=== PATIENT | female | born 1940 | race Caucasian/White ===

== ENCOUNTER 2017-05-17 15:50 | Outpatient (CLI) | payer BC, MEDICARE, OTHER ==
[2017-05-17 16:44] LABS: #Basophils 0.1 thou/uL (0.0-0.2); #Lymphocytes 1.8 thou/uL (1.20-3.40); #Monocytes 0.3 thou/uL (0.11-0.59); #Neutrophils 2.3 thou/uL (1.40-6.50); %Basophils 1.3 % (0.0-1.0); %Lymphocytes 39.8 % (21.0-51.0); %Monocytes 7.4 % (0.0-10.0); %Neutrophils 50.4 % (42.0-75.0); Hemoglobin 14.3 g/dL (12.0-16.0); Mean Corpuscular HGB CONC 32.5 g/dL (32.0-36.0); Mean Corpuscular Hemoglobin 28.3 pg (27.0-31.0); Mean Platelet Volume 7.1 fL (7.4-10.4); Platelet Count 220 thou/uL (130-400); RBC Distribution Width 12.1 % (11.5-14.5); Red Blood Cell (RBC) Count 5.06 mill/uL (4.20-5.40); White Blood Cell (WBC) Count 4.6 thou/uL (4.8-10.8)
[2017-05-17 17:02] LABS: ALT (SGPT) 15 U/L (8-55); AST (SGOT) 17 U/L (5-34); Albumin 4.4 g/dL (3.4-4.8); Alkaline Phosphatase 66 U/L (40-150); Anion Gap 14 mmol/L (10-20); BUN (Urea Nitrogen) 12 mg/dL (9.8-20.1); Bilirubin, Total 0.8 mg/dL (0.2-1.2); Calc. Creatinine Clearance 0 mL/min (70-130); Calcium 9.5 mg/dL (7.8-10.44); Carbon Dioxide 25 mmol/L (23-31); Chloride 105 mmol/L (98-107); Estimated GFR-MDRD 58; Globulin 2.7 g/dL (2.4-3.5); Glucose 79 mg/dL (83-110); Lipase 38 U/L (8-78); Potassium 4.3 mmol/L (3.5-5.1); Protein, Total 7.1 g/dL (6.0-8.3); Sodium 140 mmol/L (136-145)
== END 2017-05-17 15:51 | disposition home or self-care (01) ==
LOC: HPCALD 15:50
PROVIDERS: ATTEND Family Medicine
DX: R10.11 Right upper quadrant pain (principal)
CPT/HCPCS: 36415; 80053; 83690; 85025

== ENCOUNTER 2017-05-22 09:12 | Outpatient (CLI) | payer MEDICARE ==
--- NOTE | 2017-05-22 17:12 | ULT ---
RIGHT UPPER QUADRANT ULTRASOUND 05/22/17 Ultrasonography of the right upper quadrant was performed for evaluation of right upper quadrant skyler n. The liver is normal in size measuring 14.4 cm in oblique sagittal length. There are two small cysts in the left lobe, one simple and measuring 1.3 cm in size and another next to it that is more comple x, possibly with a septation, also measuring 1.3 cm in size. The odds of them being high significant are low. The pancreas was partially shadowed by gas. The portion seen did not appear abnormal, but not all areas were seen well enough. The gallbladder contains no signs of stones or wall thickening, however, the patient's common bile duct is enlarged, measuring 8 to 10 mm in width. The reason for this is not apparent. There is no intrahepatic ductal dilatation. I could not see pancreatic patholo gy to account for it; however, as the pancreas is not seen optimally due to gas, that is not exclude d. The right kidney was 8.5 cm long and contains no sign of mass or hydronephrosis. IMPRESSION: Enlargement of the common bile duct (8-10 mm) of uncertain etiology. This is large enough and beyond normal that it needs to be worked up further. I would recommend consideration of a CT first (with o ral and IV contrast if possible). She will probably need to be referred to a conference services coordinator afte r froy. Code T POS: HOME
== END 2017-05-22 09:13 | disposition home or self-care (01) ==
LOC: BURULT 09:12
PROVIDERS: ATTEND Family Medicine
DX: R10.11 Right upper quadrant pain (principal); K83.8 Other specified diseases of biliary tract
CPT/HCPCS: 76705

== ENCOUNTER 2017-05-27 08:59 | Outpatient (CLI) | payer MEDICARE ==
[2017-05-27] MEDS ORDERED: Iopamidol 370 76% 100 ML VIAL ONE (09:00)
--- NOTE | 2017-05-27 18:41 | CT ---
CT OF THE ABDOMEN WITH CONTRAST: Date: 05-27-17 Technique: Spiral CT of the abdomen was performed for evaluation of a mildly dilated common bile aileen t seen on a recent ultrasound. Axial slices were acquired and then coronal and sagittal reconstructi ons were done. The study was done after administration of both oral and IV contrast. FINDINGS: The patient's common bile duct is mildly enlarged measuring 7-8 mm in width on different views. Neve rtheless, there was no observable cause for it. The duct can be followed all the way to the head of the pancreas. There was no hint of a mass in the head of the pancreas. The duct can be followed all the way to its termination in the duodenum. Similarly, there is no dilated intrahepatic ducts. There are a few small cysts in the medial right lobe and left lobe that are generally 1 cm or less in siz e. Otherwise, no focal hepatic lesions are seen. No stones are appreciated in the gallbladder. The lung bases are clear. The spleen, pancreas, adrenal glands, kidneys, and abdominal aorta were un remarkable in appearance. A subcentimeter cyst is suggested in the right kidney. The bowel shows no distention, stranding or wall thickening. No free air or free fluid was seen. IMPRESSION: Mild enlargement of the common bile duct with no discernable cause for such. Specifically, the head of the pancreas is unremarkable in appearance. This could just be a variation of normal in this david ent. A lesser possibility would be intraductal pathology as a cause. If the patient's clinical prese ntation and lab work should probably help determine if further workup is in order. POS: HOME
== END 2017-05-27 09:00 | disposition home or self-care (01) ==
LOC: BURCT 08:59
PROVIDERS: ATTEND Family Medicine
DX: K83.8 Other specified diseases of biliary tract (principal)
CPT/HCPCS: 74160; A4216

== ENCOUNTER 2018-12-02 23:28 | Emergency (ER) | payer MEDICARE ==
[2018-12-03 00:15] LABS: #Basophils 0.1 thou/uL (0.0-0.2); #Eosinphils 0.2 thou/uL (0.0-0.7); #Monocytes 0.4 thou/uL (0.11-0.59); #Neutrophils 2.2 thou/uL (1.40-6.50); %Basophils 1.1 % (0.0-1.0); %Eosinophils 3.4 % (0.0-10.0); %Monocytes 7.9 % (0.0-10.0); %Neutrophils 45.7 % (42.0-75.0); Hemoglobin 13.5 g/dL (12.0-16.0); Mean Corpuscular HGB CONC 33.3 g/dL (32.0-36.0); Mean Corpuscular Hemoglobin 28.6 pg (27.0-31.0); Mean Corpuscular Volume 85.9 fL (78.0-98.0); Mean Platelet Volume 6.6 fL (7.4-10.4); Platelet Count 213 thou/uL (130-400); RBC Distribution Width 12.8 % (11.5-14.5); White Blood Cell (WBC) Count 4.8 thou/uL (4.8-10.8)
[2018-12-03 00:22] LABS: ALT (SGPT) 17 U/L (8-55); AST (SGOT) 21 U/L (5-34); Albumin 4.2 g/dL (3.4-4.8); Alkaline Phosphatase 79 U/L (40-150); Anion Gap 9 mmol/L (10-20); BUN (Urea Nitrogen) 13 mg/dL (9.8-20.1); Bilirubin, Total 0.4 mg/dL (0.2-1.2); Calc. Creatinine Clearance 0 mL/min (70-130); Calcium 9.7 mg/dL (7.8-10.44); Carbon Dioxide 30 mmol/L (23-31); Chloride 106 mmol/L (98-107); Estimated GFR-MDRD 63; Globulin 3.2 g/dL (2.4-3.5); Glucose 103 mg/dL (83-110); Protein, Total 7.4 g/dL (6.0-8.3); Sodium 141 mmol/L (136-145)
== END 2018-12-03 00:34 | disposition home or self-care (01) ==
LOC: BURERS 23:28
DX: I10 Essential (primary) hypertension (principal)
CPT/HCPCS: 80053; 84484; 85025; 93005

== ENCOUNTER 2023-06-23 10:19 | Emergency (ER) | payer MEDICARE ==
[2023-06-23] MEDS ORDERED: Lidocaine Viscous Sol 2% 15 ml UD Cup ONE (11:11)
[2023-06-23] MEDS ORDERED: Mag-Al Plus 1200 MG/1200 MG/120 MG/30 ML UDCUP ONE (11:11)
[2023-06-23 11:17] LABS: Anion Gap 16 mmol/L (10-20); Carbon Dioxide 22 mmol/L (23-31); Chloride 99 mmol/L (98-107); Potassium 4.2 mmol/L (3.5-5.1); Sodium 133 mmol/L (136-145)
[2023-06-23 11:18] LABS: BUN (Urea Nitrogen) 14 mg/dL (9.8-20.1); Calc. Creatinine Clearance 0 mL/min (70-130); Calcium 8.9 mg/dL (7.6-10.4); Estimated GFR 65; Glucose 102 mg/dL (83-110)
[2023-06-23 11:23] LABS: Hematocrit 45.2 % (36.0-47.0); Manual Diff?? YES; Mean Corpuscular HGB CONC 30.9 g/dL (32.0-36.0); Mean Corpuscular Hemoglobin 26.8 pg (27.0-31.0); Mean Corpuscular Volume 86.9 fl (78.0-98.0); Mean Platelet Volume 6.6 fL (7.4-10.4); Platelet Count 153 10x3/uL (130-400); RBC Distribution Width 11.9 % (11.5-14.5); White Blood Cell (WBC) Count 2.8 10x3/uL (4.8-10.8)
[2023-06-23 11:24] LABS: #Eosinphils 0.1 thou/uL (0.0-0.7); #Monocytes 0.3 thou/uL (0.11-0.59); #Neutrophils 1.5 thou/uL (1.40-6.50); %Basophils 1.1 % (0.0-1.0); %Eosinophils 5.2 % (0.0-10.0); %Monocytes 12.6 % (0.0-10.0); %Neutrophils 55.2 % (42.0-75.0)
[2023-06-23 11:25] LABS: MDiff Complete? YES
[2023-06-23 11:47] LABS: Bilirubin Moderate (Negative); Blood, Urine Trace (Negative); Clarity Cloudy (Clear); Glucose, Urine (Dipstick) Negative (Negative); Ketone, Urine 40 mg/dL (Negative); Leukocyte Negative (Negative); Nitrite Negative (Negative); Protein, Urine (Dipstick) 30 mg/dL (Neg-Trace); Specific Gravity, Urine 1.025 (1.005-1.030); pH, Urine 5.5 (5.0-9.0)
[2023-06-23 12:03] LABS: Bacteria/HPF 2+ HPF (None Seen); CAUTI Indications for Culture Fever or rigors; RBC/HPF None Seen HPF (0-3); Squamous Epithelial 0-3 HPF (0-3); WBC/HPF 0-3 HPF (0-3)
[2023-06-23 12:05] LABS: Urine Culture Reflex No No
[2023-06-23] MEDS ORDERED: Iopamidol 370 76% 100 ML VIAL ONE (15:22)
[2023-06-24 23:07] LABS: #Lymphocytes 0.7 thou/uL (1.20-3.40)
== END 2023-06-23 14:00 | disposition home or self-care (01) ==
LOC: BURERS 10:19
DX: I88.0 Nonspecific mesenteric lymphadenitis (principal); K29.70 Gastritis, unspecified, without bleeding; H40.9 Unspecified glaucoma
CPT/HCPCS: 74177; 80048; 81001; 83605; 83690; 85025; 93005; Q9967